=== PATIENT | female | born 1960 | race Caucasian/White ===

== ENCOUNTER 2017-06-17 14:13 | Inpatient (IN) | payer OTHER ==
[2017-06-17 14:25] VITALS: BMI 36.4
[2017-06-17] MEDS ORDERED: SODIUM CHLORIDE 1,000 ML IV STA (15:00)
[2017-06-17] MEDS ORDERED: ACETAMINOPHEN 1000 MG/100 ML VIAL (NON FORMULARY) IVPB ONE (15:01)
[2017-06-17] MEDS ORDERED: morphine CARPU-JECT 2 MG/1 ML DISP.SYRIN IVPUSH ONE (15:01)
--- NOTE | 2017-06-17 15:29 | PDOC ---
History of Present Illness - General Chief Complaint: SIRS, Suspected/Possible Stated Complaint: WEAKNESS Time Seen by Provider: 06/17/17 14:33 History Source: Patient Exam Limitations: No Limitations - History of Present Illness Initial Comments: 06/17/17 14:35 56-year-old female with recent diagnosis of breast and spine cancer in January now currently receiving chemotherapy and radiation therapy presents today with weakness, fever, poor appetite for the past 2 days. Patient states was treated by her oncologist who prescribed her Keflex since initially she states under the breasts were red and excoriated. Patient denies cough, shortness of breath, chest pain, headache, sore throat, change in bowel pattern, or change in urine pattern. Timing/Duration: other (2 days) Associated Symptoms: reports: fever/chills, loss of appetite, rash, weakness. denies: chest pain, cough, headaches, nausea/vomiting, shortness of breath Past History - Travel Traveled outside of the country in the last 30 days: No - Past Medical History Allergies/Adverse Reactions: Allergies Allergy/AdvReac Type Severity Reaction Status Date / Time No Known Allergies Allergy Verified 06/17/17 14:21 Home Medications: Ambulatory Orders Acetaminophen W/ Codeine #3 [Tylenol # 3 -] 1 tab PO TID 06/17/17 Cephalexin [Keflex] 500 mg PO QID 06/17/17 FENTANYL 12mcg PATCH [DURAGESIC 12mcg PATCH -] 1 each TD Q72H 06/17/17 Letrozole 2.5 mg PO DAILY 06/17/17 Oxycodone HCl/Acetaminophen [Oxycodone-Acetaminophen 5-325] 2 tab PO Q6H Anemia: No Asthma: No Cancer: Yes (RIGHT BREAST 01/2015-HAD 8 WEEKS CHEMO, COMPLETED 05/07/15) Cardiac Disorders: No CVA: No COPD: No CHF: No Dementia: No Diabetes: No GI Disorders: No Disorders: No HTN: No Hypercholesterolemia: No Liver Disease: No Seizures: No Thyroid Disease: No - Surgical History Abdominal Surgery: No Appendectomy: No Cardiac Surgery: No Cholecystectomy: No Lung Surgery: No Neurologic Surgery: No Orthopedic Surgery: No - Psycho/Social/Smoking Cessation Hx Anxiety: No Suicidal Ideation: No Smoking History: Never smoked Hx Alcohol Use: Yes (SOCIAL) Drug/Substance Use Hx: No Substance Use Type: None Hx Substance Use Treatment: No Patient Lives Alone: No Review of Systems - Review of Systems Able to Perform ROS?: Yes Constitutional: Yes: Symptoms Reported, Chills, Fever, Loss of Appetite, Weakness HEENTM: No: Symptoms Reported Respiratory: No: Symptoms reported Cardiac (ROS): No: Symptoms Reported ABD/GI: Yes: Poor Appetite, Poor Fluid Intake : No: Symptoms Reported Musculoskeletal: No: Symptoms Reported Integumentary: Yes: Other (fungal rash under breat. Radiation burn to back) Neurological: Yes: Weakness *Physical Exam - Vital Signs Last Vital Signs Temp Pulse Resp BP Pulse Ox 100.4 F H 132 H 19 121/81 98 06/17/17 14:21 06/17/17 14:21 06/17/17 14:21 06/17/17 14:21 06/17/17 14:21 - Physical Exam General Appearance: Yes: Nourished, Appropriately Dressed. No: Apparent Distress HEENT: positive: EOMI, MICA, TMs Normal, Pharynx Normal (DRY). negative: Pale Conjunctivae Neck: positive: Supple Respiratory/Chest: positive: Lungs Clear, Normal Breath Sounds. negative: Respiratory Distress, Accessory Muscle Use Cardiovascular: positive: Regular Rhythm, Tachycardia. negative: Murmur Gastrointestinal/Abdominal: positive: Soft. negative: Tenderness Extremity: positive: Normal Capillary Refill. negative: Pedal Edema Integumentary: positive: Other (Noted radiation burn measuring 4 x 3 cm to the mid thoracic spine without signs of infection. ) Neurologic: positive: Normal Mood/Affect, Motor Strength 5/5 (AMBULATORY) ED Treatment Course - LABORATORY CBC & Chemistry Diagram: 06/18/17 06:30 06/17/17 15:30 - RADIOLOGY Radiology Studies Ordered: Category Date Time Status CHEST X-RAY PORTABLE* [RAD] Stat Radiology 06/17/17 15:00 Ordered Medical Decision Making - Medical Decision Making 06/17/17 15:36 Patient here for evaluation of fever and weakness for the past few days. Patient currently on Keflex day 2 of 7 and states took Tylenol at 5 AM for fever and weakness. Patient on exam had no acute findings except for the radiation burn to her mid thoracic spine and follow-up rash underneath her breasts. Patient was ordered for septic workup including morphine 2 mg IV push for thoracic pain. Patient ordered for IV Tylenol and IV fluids. 06/17/17 15:53 Laboratory Tests 06/04/15 06/04/15 06/05/15 08:45 12:30 07:30 Hgb 9.3 L 9.5 L 9.6 L VBG pH POC VBG pCO2 06/17/17 06/17/17 15:30 15:40 Hgb 9.7 L VBG pH 7.42 POC VBG pCO2 41.2 X-ray shows no acute pathology. 06/17/17 17:08 Laboratory Tests 06/17/17 06/17/17 15:30 15:30 Sodium 138 Potassium 3.0 L Chloride 101 Carbon Dioxide 24 Anion Gap 13 BUN 10 Random Glucose 112 H Lactic Acid 1.7 Calcium 8.2 L AST 27 ALT 64 Troponin I < 0.02 Albumin 2.8 L Pt ordered for vanco and zosyn IV. For the hypokalemia, pt ordered for k-dur. Awaiting callback from Dr. Barrera to discuss admission. 06/17/17 18:13 06/17/17 18:14 Selected Entries 06/17/17 16:45 Temperature 98.6 F Pulse Rate [ 112 H Apical] Case discussed with Dr. barnard and is recommending consultation to her oncologist Dr. cruz. Will order Lotrimin for breast Kassandra Laboratory Tests 06/17/17 17:25 Urine Urobilinogen Negative Urine WBC 6 *DC/Admit/Observation/Transfer Diagnosis at time of Disposition: Hypokalemia, Candidiasis of breast Sepsis Qualifiers: Sepsis type: sepsis due to unspecified organism Qualified Code(s): A41.9 - Sepsis, unspecified organism - Discharge Dispostion Admit: Yes - Referrals
[2017-06-17] MEDS ORDERED: morphine CARPU-JECT 2 MG/1 ML DISP.SYRIN ONE (15:34)
[2017-06-17] MEDS ORDERED: ACETAMINOPHEN INJECTION 100 ML IVPB ONE (15:34)
[2017-06-17 15:41] LABS: BASOPHIL 0.4 % (0-2.0)
[2017-06-17 15:44] LABS: VENOUS PH 7.42 (7.32-7.42)
[2017-06-17 15:45] LABS: VENOUS BLOOD GAS HCO3 25.9 meq/L (19-25)
[2017-06-17 15:45] LABS: MCH 32.3 pg (25.7-33.7); MCHC 34.4 g/dl (32.0-36.0); MEAN PLT VOLUME 8.9 fl (7.5-11.1); NEUTROPHILS 77.4 % (42.8-82.8); PLATELET COUNT 226 K/MM3 (134-434); RDW 19.8 % (11.6-15.6)
[2017-06-17 16:32] LABS: INR 1.43 (0.82-1.09); PROTHROMBIN TIME (PATIENT) 15.9 SEC (9.98-11.88)
[2017-06-17 16:43] LABS: ALBUMIN 2.8 g/dl (3.4-5.0); ANION GAP 13 (8-16); CALCIUM 8.2 mg/dL (8.5-10.1); CO2 24 mmol/L (21-32); GLUCOSE,RANDOM 112 mg/dL (74-106)
[2017-06-17 16:47] LABS: PLATELET ESTIMATE ADEQUATE (NORMAL)
[2017-06-17 16:51] LABS: ALK PHOS 88 U/L (45-117); BILIRUBIN,TOTAL 0.8 mg/dL (0.2-1.0); CPK 38 IU/L (26-192); CREATININE 0.6 mg/dL (0.55-1.02); SGOT/AST 27 U/L (15-37); SGPT/ALT 64 U/L (12-78); TOT PROT 6.4 g/dl (6.4-8.2); TROPONIN I < 0.02 ng/ml (0.00-0.05)
[2017-06-17] MEDS ORDERED: VANCOMYCIN 1,000 MG in DEXTROSE 5%-WATER - 250 ML IVPB ONE (17:07)
[2017-06-17] MEDS ORDERED: POTASSIUM CHLORIDE TABS 20 MEQ TABLET.ER (FP) PO ONE ×2 (17:07→17:23)
[2017-06-17] MEDS ORDERED: PIPERACILLIN/TAZOB 3.375 GM 3.375 GM in DEXTROSE 5%-WATER - 50 ML IVPB SCH (17:15)
[2017-06-17] MEDS ORDERED: VANCOMYCIN 1 GRAM (PRE-DOCKED) 250 ML IVPB ONE (17:23)
[2017-06-17] MEDS ORDERED: PIPERACILLIN/TAZOB 3.375 GM 50 ML IVPB ONE (17:23)
[2017-06-17 17:45] LABS: URINE APPEARANCE SLCLOUDY; URINE BILIRUBIN NEGATIVE (NEGATIVE); URINE BLOOD NEGATIVE (NEGATIVE); URINE COLOR YELLOW; URINE GLUCOSE (UA) NEGATIVE (NEGATIVE); URINE KETONE NEGATIVE (NEGATIVE); URINE NITRITE NEGATIVE (NEGATIVE); URINE PROTEIN NEGATIVE (NEGATIVE); URINE UROBILINOGEN NEGATIVE mg/dL (0.2-1.0)
[2017-06-17 17:50] LABS: URINE LEUK ESTERASE 3+ (NEGATIVE)
[2017-06-17 18:04] LABS: URINE BACTERIA RARE /hpf (NONE SEEN); URINE HYALINE CAST 1 /lpf; URINE MUCUS MODERATE; URINE RBC 5 /hpf (0-3); URINE WBC 6 /hpf (3-5)
[2017-06-17] MEDS ORDERED: FENTANYL PATCH WASTE MC PRN (19:30)
[2017-06-17] MEDS ORDERED: fentaNYL 12mcg/hr PATCH.TD72 TD SCH (19:30)
[2017-06-17] MEDS ORDERED: oxyCODONE HCL 5 MG TABLET PO PRN (19:30)
[2017-06-17] MEDS ORDERED: ACETAMINOPHEN 325 MG TABLET (FP) PO PRN (19:30)
[2017-06-17] MEDS ORDERED: hydrOXYzine HCL 25 MG TABLET (FP) PO PRN (19:30)
[2017-06-17] MEDS ORDERED: CLOTRIMAZOLE 1% CREAM 15 GM TUBE TP SCH (22:00)
[2017-06-17] MEDS: HEPARIN NA (PORCINE) 5,000 UNITS/ML 1ML VIAL SQ SCH (22:07)
[2017-06-17] MEDS: CLOTRIMAZOLE 1% CREAM 15 GM TUBE TP SCH ×2 (22:14)
[2017-06-18] MEDS ORDERED: PIPERACILLIN/TAZOBACTAM 3.375 GM VIAL IVPB ONE (00:20)
[2017-06-18] MEDS ORDERED: DEXTROSE 5%-WATER - 50 ML IVPB ONE (00:21)
[2017-06-18] MEDS ORDERED: PIPERACILLIN/TAZOB 3.375 GM 3.375 GM in DEXTROSE 5%-WATER - 50 ML IVPB ONE (02:00)
[2017-06-18 07:17] LABS: MCH 31.9 pg (25.7-33.7); MCHC 33.6 g/dl (32.0-36.0); MEAN CELL VOLUME 94.9 fl (80-96); MEAN PLT VOLUME 8.1 fl (7.5-11.1); PLATELET COUNT 190 K/MM3 (134-434); RDW 20.1 % (11.6-15.6)
[2017-06-18 07:24] LABS: WHITE BLOOD COUNT 1.8 K/mm3 (4.0-10.0)
[2017-06-18 07:52] LABS: ALBUMIN 2.2 g/dl (3.4-5.0); ALK PHOS 71 U/L (45-117); ANION GAP 7 (8-16); BILIRUBIN,TOTAL 0.4 mg/dL (0.2-1.0); CALCIUM 7.8 mg/dL (8.5-10.1); CO2 27 mmol/L (21-32); CREATININE 0.5 mg/dL (0.55-1.02); GLUCOSE,RANDOM 115 mg/dL (74-106); SGOT/AST 27 U/L (15-37); SGPT/ALT 61 U/L (12-78); TOT PROT 5.4 g/dl (6.4-8.2)
[2017-06-18 09:01] LABS: PLATELET ESTIMATE ADEQUATE (NORMAL); TOTAL CELLS COUNTED 100
[2017-06-18 09:02] LABS: METAMYELOCYTE 2 % (0-2); MYELOCYTE 1 % (0-2); REACTIVE LYMPHOCYTES 2 % (0-80)
[2017-06-18] MEDS ORDERED: PT OWN MED DRAWER 7, Y5N ONE (09:29)
[2017-06-18] MEDS: CLOTRIMAZOLE 1% CREAM 15 GM TUBE TP SCH (09:34)
--- NOTE | 2017-06-18 09:48 | PN ---
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, completed RT to spine one month ago developed fevers for last one week, as high as 101 at home saw the radiation oncologist for f/u on Monday- advised admission for fever given keflex for open skin wound on back also antifungal cream for rash under breast not working lives with mom no sick contacts lives in an apt no travel no pets no mosquito/tick bites on oral chemotherapy-currently off this week ?name no nausea or vomiting, no diarrhea or dysuria followed by Dr Rosenberg at [facility] notable for fever to 100.8 fungal rash under left breast radiation skin changes on back with open skin- no purulence, no erythema labs notable for neutropenia a/p fever/leukopenia open skin wound fungal rash under left breast metastatic breast cancer vanco/zosyn/diflucan f/u cultures Problem List - Problems (1) Fever Code(s): R50.9 - FEVER, UNSPECIFIED (2) Leukopenia due to antineoplastic chemotherapy Code(s): D70.1 - AGRANULOCYTOSIS SECONDARY TO CANCER CHEMOTHERAPY T45.1X5A - ADVERSE EFFECT OF ANTINEOPLASTIC AND IMMUNOSUP DRUGS, INIT (3) Candidiasis of breast Code(s): B37.89 - OTHER SITES OF CANDIDIASIS (4) Metastatic breast cancer Code(s): C50.919 - MALIGNANT NEOPLASM OF UNSP SITE OF UNSPECIFIED FEMALE BREAST
[2017-06-18] MEDS ORDERED: PIPERACILLIN/TAZOB 4.5 GM/100 ML PRE-DOCKED IVPB SCH (10:00)
[2017-06-18] MEDS ORDERED: PIPERACILLIN/TAZOB 3.375 GM 3.375 GM in DEXTROSE 5%-WATER - 50 ML IVPB SCH (10:00)
[2017-06-18] MEDS ORDERED: FLUCONAZOLE 100 MG TABLET (UD) PO SCH (10:45)
--- NOTE | 2017-06-18 10:56 | HP ---
Admitting History and Physical - Primary Care Physician PCP: Lynette Barrera - Admission Chief Complaint: RASH/CELLULITIS WITH BREAST METASTATIC CA History of Present Illness: 56-year-old female with recent diagnosis of breast and spine cancer in January now currently receiving chemotherapy and radiation therapy presents today with weakness, fever, poor appetite for the past 2 days. Patient states was treated by her oncologist who prescribed her Keflex and Silvadene since initially she states under the breasts were red and excoriated. Patient denies cough, shortness of breath, chest pain, headache, sore throat, change in bowel pattern , or change in urine pattern. Timing/Duration: other (2 days) Associated Symptoms: reports: fever/chills, loss of appetite, rash, weakness. denies: chest pain, cough, headaches, nausea/vomiting, shortness of breath History Source: Patient, Medical Record Limitations to Obtaining History: Poor Historian - Past Medical History Heme/Onc: Yes: Other (breast cancer with mets to bone) Musculoskeletal: Yes: Other - Smoking History Smoking history: Never smoked - Alcohol/Substance Use Hx Alcohol Use: Yes (SOCIAL) Home Medications - Allergies Allergies/Adverse Reactions: Allergies Allergy/AdvReac Type Severity Reaction Status Date / Time No Known Allergies Allergy Verified 06/17/17 14:21 - Home Medications Home Medications: Ambulatory Orders Acetaminophen W/ Codeine #3 [Tylenol # 3 -] 1 tab PO TID 06/17/17 Cephalexin [Keflex] 500 mg PO QID 06/17/17 FENTANYL 12mcg PATCH [DURAGESIC 12mcg PATCH -] 1 each TD Q72H 06/17/17 Letrozole 2.5 mg PO DAILY 06/17/17 Oxycodone HCl/Acetaminophen [Oxycodone-Acetaminophen 5-325] 2 tab PO Q6H Family Disease History - Family Disease History Family Disease History: CA: Mother (endometrial ca 76) Review of Systems - Review of Systems Constitutional: reports: Loss of Appetite, Weakness Eyes: reports: No Symptoms HENT: reports: No Symptoms Neck: reports: No Symptoms Cardiovascular: reports: No Symptoms Respiratory: reports: No Symptoms Gastrointestinal: reports: No Symptoms Genitourinary: reports: No Symptoms Musculoskeletal: reports: No Symptoms Integumentary: reports: Eczema, Erythema, Pruritis, Rash Neurological: reports: No Symptoms Endocrine: reports: No Symptoms Hematology/Lymphatic: reports: Other Psychiatric: reports: No Symptoms Physical Examination Vital Signs: Vital Signs Temperature 98.2 F 06/18/17 06:00 Pulse Rate 106 H 06/18/17 06:00 Respiratory Rate 18 06/18/17 06:00 Blood Pressure 142/81 06/18/17 06:00 O2 Sat by Pulse Oximetry (%) 95 06/17/17 20:50 Constitutional: Yes: Mild Distress Eyes: Yes: WNL HENT: Yes: WNL Neck: Yes: WNL Cardiovascular: Yes: WNL Respiratory: Yes: WNL Gastrointestinal: Yes: WNL Renal/: Yes: WNL Musculoskeletal: Yes: WNL Extremities: Yes: WNL Edema: No Peripheral Pulses WNL: Yes Integumentary: Yes: Rash, Venous Stasis Changes, Other Wound/Incision: Yes: Dressing Dry and Intact Neurological: Yes: Pre-Existing Deficit, Other ...Motor Strength: LLE, RLE Psychiatric: Yes: WNL Labs: CBC, BMP 06/18/17 06:30 06/18/17 06:30 Imaging - Results Chest X-ray: Report Reviewed Assessment/Plan BREAST CANCER WITH METS TO SPINE CORD COMPRESSION ON CHEMOTHERAPY WITH DR JESUS ESPINOSA/LETRIZOL ALSO RECEIVING RADIATION THERAPY WITH DR HANNA. PATIENT ON SILVADENE CREAM FOR RADIATION SKIN YBARRA. ID CONSULT APPRECIATED , ANTI FUNGAL THERAPY STARTED WILL NEED TO STOP OXYCODONE WITH ANTIFUNGALS PER ID. MAY CONTINUE DURAGESIC FENTANYL PATCH FOR PAIN I D/W DR HANY LEE WHO WILL BE HERE TO SEE PATIENT ISOLATION ROOM
[2017-06-18] MEDS: LETROZOLE 2.5 MG TABLET (FP) PO SCH (10:58)
[2017-06-18] MEDS: HEPARIN NA (PORCINE) 5,000 UNITS/ML 1ML VIAL SQ SCH ×2 (10:58→21:35)
[2017-06-18] MEDS: PIPERACILLIN/TAZOB 4.5 GM 4.5 GM in DEXTROSE 5%-WATER 100 ML IVPB SCH ×2 (10:59→17:48)
--- NOTE | 2017-06-18 11:03 | CONSULT ---
Consult Consult Specialty:: Hematology/Oncology Referred by:: - History of Present Illness Chief Complaint: metastatic breast cancer, fever History of Present Illness: is a 56 y/o female with Hx of metastatic breast cancer, who follows with and is on chemotherapy and radation treatment. She completed RT a month ago. She presented with weakness and a fever of 100.8. She has an open skin wound on her back for which she was being treated with Keflex. She also had erythema under her left breast which she showed to her oncologist and his nurse last week and they suspected it was a fungal infection. Patient was admitted and started on broad spectrum antibiotics and antifungals. She overall feels well today with no major complaints. - History Source History Provided By: Patient Limitations to Obtaining History: No Limitations - Past Medical History Musculoskeletal: Yes: Other - Alcohol/Substance Use Hx Alcohol Use: Yes (SOCIAL) - Smoking History Smoking history: Never smoked Home Medications - Allergies Allergies/Adverse Reactions: Allergies Allergy/AdvReac Type Severity Reaction Status Date / Time No Known Allergies Allergy Verified 06/17/17 14:21 - Home Medications Home Medications: Ambulatory Orders Acetaminophen W/ Codeine #3 [Tylenol # 3 -] 1 tab PO TID 06/17/17 Cephalexin [Keflex] 500 mg PO QID 06/17/17 FENTANYL 12mcg PATCH [DURAGESIC 12mcg PATCH -] 1 each TD Q72H 06/17/17 Letrozole 2.5 mg PO DAILY 06/17/17 Oxycodone HCl/Acetaminophen [Oxycodone-Acetaminophen 5-325] 2 tab PO Q6H Family Disease History - Family Disease History Family Disease History: CA: Mother (endometrial ca 76) Review of Systems - Review of Systems Constitutional: reports: No Symptoms Eyes: reports: No Symptoms HENT: reports: No Symptoms Neck: reports: No Symptoms Cardiovascular: reports: No Symptoms Respiratory: reports: No Symptoms Gastrointestinal: reports: No Symptoms Genitourinary: reports: No Symptoms Breasts: reports: No Symptoms Reported, Skin Changes, Other (erythema uner her left breast) Musculoskeletal: reports: No Symptoms Integumentary: reports: Other (wound in the back after radiation) Neurological: reports: No Symptoms Endocrine: reports: No Symptoms Hematology/Lymphatic: reports: No Symptoms Psychiatric: reports: No Symptoms Physical Exam Vital Signs: Vital Signs Temperature 98.2 F 06/18/17 06:00 Pulse Rate 106 H 06/18/17 06:00 Respiratory Rate 18 06/18/17 06:00 Blood Pressure 142/81 06/18/17 06:00 O2 Sat by Pulse Oximetry (%) 95 06/17/17 20:50 Constitutional: Yes: Well Nourished Eyes: Yes: WNL, Conjunctiva Clear, EOM Intact HENT: Yes: WNL, Atraumatic, Normocephalic Neck: Yes: WNL Cardiovascular: Yes: WNL, Regular Rate and Rhythm Respiratory: Yes: WNL, Regular Gastrointestinal: Yes: WNL, Normal Bowel Sounds Breast(s): Yes: Skin Changes, Other (large area of erythema with macerated skin and raised borders under her left breast largely suggestive of a fungal infection) Musculoskeletal: Yes: WNL Extremities: Yes: WNL, Other (area of denuded skin in mid back , appears clean and non-infected, radiation induced changes) Neurological: Yes: WNL Labs: CBC, BMP 06/18/17 06:30 06/18/17 06:30 Assessment/Plan 56 y/o female with metastatic breast cancer on oral chemotherapy now admitted with a low grade fever, area of erythema under left breast highly suggestive of a fungal infection and area of denuded skin in the back which is clean and radiation induced skin changes -on broad spectrum Abx and diflucan per ID, on topical antifungals as well, awaiting BCX results, afebrile now -silver sulfadiazine and wound care to radiation induced skin changes in the back -will touch base with her oncologist tomorrow to get details on her current chemotherapy. She says she is currently on her week off from treatment now and while she is undergoing infectious work-up. ok to hold treatment for 48 hours -will continue to follow while inpatient
[2017-06-18] MEDS ORDERED: FLUCONAZOLE 200 MG/D5W 100 ML IVPB ONE (11:15)
[2017-06-18] MEDS ORDERED: NYSTATIN/TRIAMCINOLONE TOPICAL CREAM 15 GM TUBE TP SCH (11:15)
[2017-06-18] MEDS ORDERED: PIPERACILLIN/TAZOBACTAM 4.5 GM VIAL IVPB ONE ×2 (11:43→17:25)
[2017-06-18] MEDS ORDERED: DEXTROSE 5%-WATER 100 ML IVPB ONE ×2 (11:44→17:25)
[2017-06-18] MEDS: VANCOMYCIN 1,250 MG in DEXTROSE 5%-WATER - 250 ML IVPB SCH ×2 (14:30→21:35)
[2017-06-18] MEDS: SILVER SULFADIAZINE 1% TOP CREAM 50 GM JAR TP SCH (14:32)
[2017-06-18] MEDS: NYSTATIN/TRIAMCINOLONE TOPICAL CREAM 15 GM TUBE TP SCH ×2 (14:33→21:42)
--- NOTE | 2017-06-18 18:08 | CONS ---
DATE OF CONSULTATION: DATE OF DICTATION: 06/18/2017 REQUESTED BY: Lynette Barrera MD This is a 56-year-old woman who has a diagnosis of recurrent breast cancer, originally diagnosed in 2013. At that time she had 8 weeks of chemotherapy and lumpectomy and followup radiation treatment. She developed back pain in the spring of his year, was found to have metastases to her spine. She completed a course of radiation therapy to her back 1 month ago. She is followed by Dr. Palomino, Radiation Oncology, who she saw in followup 1 month after she completed her treatment on Monday. At that time she told him she was having fevers at home, and he recommended admission. She waited until Monday night and came to the emergency room and she had recurrent fever to 101 at home. She was started on Keflex and a topical antifungal cream on Monday. She is followed by Dr. Rosenberg at [place] for her breast cancer. She takes an oral agent, 3 weeks on, 1 week off, currently off. Doesn't know the name. FOllowed by Dr Rosenberg at [facility]. She is followed as well by Dr. Palomino and Dr. Barrera. She reports that she has been feeling weak. She has had fevers with a poor appetite. She has had no chest pain, cough, headaches, nausea, vomiting, diarrhea, dysuria, or mucositis. She has no known drug allergies. MEDICATION: She was started on Keflex on Monday. She takes letrozole, which is Femara, daily. She has been on a fentanyl patch for the last 2 months, with good control of her pain, and she also takes an oral chemotherapy agent, is currently off. Her past medical history, besides the breast cancer, is otherwise unremarkable. Surgical history, besides the lumpectomy, is unremarkable. She does not have a port. Family history is unremarkable. SOCIAL HISTORY: She lives with her mother. She works at [employer], is currently not working. There is no history of any cigarette or substance use. REVIEW OF SYSTEMS: As per HPI, she feels hot and has sweats. She denies any chills or rigors. PHYSICAL EXAMINATION: Vital Signs: Her T-max is 100.8, current temperature is 98.2. Pulse of 106. Blood pressure 142/81. Respiratory rate 18. She is saturating 95% on room air. HEENT: Normocephalic. Her eyes are anicteric. She has no mucositis. Neck: Supple. Lungs: Clear to auscultation. Heart: Regular rate and rhythm. Abdomen: Soft, nontender. Extremities: Without edema. Skin: She has a fungal rash under her left breast. As well, she has a 5 x 7 cm area on her midback, site of her prior radiation, with open skin. There is no drainage or purulence or erythema. Labs are notable for a white count of 1.8, hemoglobin 8.3, platelets 190. BUN 6 , creatinine 0.5. LFTs are normal. Urinalysis is notable for 6 white cells. Cultures are pending. Chest x-ray is negative. In summary, this is a 56-year-old woman metastatic breast cancer on oral chemotherapy s/p Radiatio therapy to her spine with fevers, a fungal rash under her left breast, and radiation skin changes to her back. As well she is leukopenic from her chemotherapy Would treat her at this time with vancomycin and Zosyn for neutropenic fever, and Diflucan for her rash. Would follow up cultures. Case was discussed with Dr. Barrera. Need to follow cbc closely due to leukopenia GUILLERMO VINSON M.D. SHAILA/[id number] MTDD
[2017-06-19] MEDS ORDERED: DEXTROSE 5%-WATER 100 ML IVPB ONE ×4 (00:05→20:05)
[2017-06-19] MEDS ORDERED: PIPERACILLIN/TAZOBACTAM 4.5 GM VIAL IVPB ONE ×4 (00:05→20:05)
[2017-06-19] MEDS: PIPERACILLIN/TAZOB 4.5 GM 4.5 GM in DEXTROSE 5%-WATER 100 ML IVPB SCH ×3 (02:15→17:33)
[2017-06-19 07:19] LABS: MCH 31.8 pg (25.7-33.7); MCHC 33.6 g/dl (32.0-36.0); MEAN CELL VOLUME 94.6 fl (80-96); MEAN PLT VOLUME 8.4 fl (7.5-11.1); PLATELET COUNT 258 K/MM3 (134-434); RDW 20.2 % (11.6-15.6); WHITE BLOOD COUNT 2.6 K/mm3 (4.0-10.0)
[2017-06-19 08:03] LABS: ANION GAP 7 (8-16); CALCIUM 8.3 mg/dL (8.5-10.1); CO2 25 mmol/L (21-32); CREATININE 0.7 mg/dL (0.55-1.02); GLUCOSE,RANDOM 117 mg/dL (74-106)
[2017-06-19] MEDS ORDERED: PT OWN MED DRAWER 7, Y5N ONE ×2 (09:01→20:04)
--- NOTE | 2017-06-19 09:33 | PN ---
Progress Note (short form) - Note Progress Note: fevers improved feels better Vital Signs Period Temp Pulse Resp BP Sys/Deras Pulse Ox Last 24 Hr 98.9 F-100.2 F 105-121 18-20 126-144/69-94 96 cor-rrr lungs clear back wound unchanged abd soft,nt ext no edema fungal rash under breast unchanged CBC, BMP 06/19/17 06:00 06/19/17 06:00 Microbiology 06/17/17 15:30 Blood - Peripheral Venous Blood Culture - Preliminary NO GROWTH OBTAINED AFTER 24 HOURS, INCUBATION TO CONTINUE FOR 4 DAYS. 06/17/17 15:44 Blood - Peripheral Venous Blood Culture - Preliminary NO GROWTH OBTAINED AFTER 24 HOURS, INCUBATION TO CONTINUE FOR 4 DAYS. a/p fever/leukopenia open skin wound fungal rash under left breast metastatic breast cancer on chemotherapy s/p radiation therapy WBC recovering vanco/zosyn lotrimin vancomycin trough f/u cultures Problem List - Problems (1) Fever Code(s): R50.9 - FEVER, UNSPECIFIED (2) Leukopenia due to antineoplastic chemotherapy Code(s): D70.1 - AGRANULOCYTOSIS SECONDARY TO CANCER CHEMOTHERAPY T45.1X5A - ADVERSE EFFECT OF ANTINEOPLASTIC AND IMMUNOSUP DRUGS, INIT (3) Candidiasis of breast Code(s): B37.89 - OTHER SITES OF CANDIDIASIS (4) Metastatic breast cancer Code(s): C50.919 - MALIGNANT NEOPLASM OF UNSP SITE OF UNSPECIFIED FEMALE BREAST
[2017-06-19] MEDS: NYSTATIN/TRIAMCINOLONE TOPICAL CREAM 15 GM TUBE TP SCH (09:37)
[2017-06-19] MEDS: LETROZOLE 2.5 MG TABLET (FP) PO SCH (09:37)
[2017-06-19] MEDS: HEPARIN NA (PORCINE) 5,000 UNITS/ML 1ML VIAL SQ SCH ×2 (09:37→21:56)
[2017-06-19] MEDS: SILVER SULFADIAZINE 1% TOP CREAM 50 GM JAR TP SCH (09:38)
[2017-06-19] MEDS: VANCOMYCIN 1,250 MG in DEXTROSE 5%-WATER - 250 ML IVPB SCH ×2 (10:04→21:55)
--- NOTE | 2017-06-19 16:07 | PN ---
Progress Note, Physician Chief Complaint: FEELING BETTER NO FEVERS OVERNIGHT RASH IMPROVING - Current Medication List Current Medications: Active Medications Acetaminophen (Tylenol -) 650 mg PO Q6H PRN PRN Reason: FEVER OR PAIN Last Admin: 06/18/17 02:54 Dose: 650 mg Fentanyl (Duragesic 12mcg Patch -) 1 patch TD Q72H [facility] Stop: 06/24/17 19:31 Last Admin: 06/17/17 22:04 Dose: 1 patch Heparin Sodium (Porcine) (Heparin -) 5,000 unit SQ BID [facility] Last Admin: 06/19/17 09:37 Dose: 5,000 unit Vancomycin HCl 1,250 mg/ (Dextrose) 250 mls @ 166.667 mls/hr IVPB BID DILLON PRN Reason: Protocol Last Admin: 06/19/17 10:04 Dose: 166.667 mls/hr Piperacillin Sod/Tazobactam (Sod 4.5 gm/ Dextrose) 100 mls @ 200 mls/hr IVPB Q8H-IV [facility] Last Admin: 06/19/17 09:37 Dose: 200 mls/hr Letrozole (Femara -) 2.5 mg PO DAILY [facility] Last Admin: 06/19/17 09:37 Dose: 2.5 mg Miscellaneous (Duragesic Patch Waste) 1 each MC PRN PRN PRN Reason: PAIN Nystatin/Triamcinolone Acetonide (Mycolog Ii Cream -) 1 applic TP BID [facility] Last Admin: 06/19/17 09:37 Dose: 1 applic Silver Sulfadiazine (Silvadene -) 1 applic TP DAILY [facility] Last Admin: 06/19/17 09:38 Dose: 1 applic - Objective Vital Signs: Vital Signs Temperature 99.5 F 06/19/17 15:31 Pulse Rate 111 H 06/19/17 15:31 Respiratory Rate 20 06/19/17 15:31 Blood Pressure 119/72 06/19/17 15:31 O2 Sat by Pulse Oximetry (%) 96 06/18/17 21:00 Constitutional: Yes: Mild Distress Eyes: Yes: WNL HENT: Yes: WNL Neck: Yes: WNL Cardiovascular: Yes: WNL Respiratory: Yes: WNL Gastrointestinal: Yes: WNL Genitourinary: Yes: WNL Musculoskeletal: Yes: WNL Extremities: Yes: WNL Edema: No Peripheral Pulses WNL: Yes Integumentary: Yes: Rash, Other Wound/Incision: Yes: Open to air Neurological: Yes: WNL ...Motor Strength: WNL Psychiatric: Yes: WNL Labs: CBC, BMP 06/19/17 06:00 06/19/17 06:00 INR, PTT INR 1.43 (0.82-1.09) H 06/17/17 15:30 Problem List - Problems (1) Candidiasis of breast Code(s): B37.89 - OTHER SITES OF CANDIDIASIS (2) Fever Code(s): R50.9 - FEVER, UNSPECIFIED (3) Hypokalemia Code(s): E87.6 - HYPOKALEMIA (4) Leukopenia due to antineoplastic chemotherapy Code(s): D70.1 - AGRANULOCYTOSIS SECONDARY TO CANCER CHEMOTHERAPY T45.1X5A - ADVERSE EFFECT OF ANTINEOPLASTIC AND IMMUNOSUP DRUGS, INIT (5) Metastatic breast cancer Code(s): C50.919 - MALIGNANT NEOPLASM OF UNSP SITE OF UNSPECIFIED FEMALE BREAST Assessment/Plan IV ABX AWAIT CX MYCOLOG II TO AREA SILVADENE TO BACK FOR RADIATION BURN OOB TO CHAIR IF THE PATIENT IS FEVER FREE DC PLANNING
--- NOTE | 2017-06-19 16:38 | EKG ---
Test Reason : Blood Pressure : / mmHG Vent. Rate : 117 BPM Atrial Rate : 117 BPM P-R Int : 136 ms QRS Dur : 072 ms QT Int : 316 ms P-R-T Axes : 028 -06 016 degrees QTc Int : 440 ms SINUS TACHYCARDIA INFERIOR INFARCT , AGE UNDETERMINED CANNOT RULE OUT ANTERIOR INFARCT , AGE UNDETERMINED ABNORMAL ECG NO PREVIOUS ECGS AVAILABLE Confirmed by ERIC TRINIDAD MD ([id number]) on 06/19/2017 4:38:01 PM Referred By: Confirmed By:ERIC TRINIDAD MD
--- NOTE | 2017-06-19 21:42 | CONSULT ---
Consult Consult Specialty:: Medical Oncology Referred by:: Lynette Barrera MD Reason for Consultation:: Low WBC , fever, skin infection - History of Present Illness Chief Complaint: worsening rash under breasts History of Present Illness: 56 y/o F w hx metastatic breast cancer w spine metastasis s/p RT , currently finished 3rd cycle of Kisqali 4 days ago ( 3 pills per day X 21 days , 7 days rest ) along w continuous Femara 2.5 mg PO qd , developed skin rash on her back due to RT but also began to get painful rash underneath her breasts L>R , assoc w fatigue, fever , ?chills , started on Keflex. Pt found to have neutropenia on admission , fungal-appearing rash below breasts, started on Zosyn and Vanco , Diflucan ; Discomfort improving as well as WBC rising without growth factor support ; had only one low grade temp 100 ; cultures neg ; low K+ -improved . CXR neg. 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: Alzheimer's, CVA, Dementia, Migraine, Multiple Sclerosis, Peripheral Neuropathy, Parkinson's, Seizure, Syncope, TIA, Vertigo, Other Cardio/Vascular: No: AFIB, Aneurysm, Aortic Insufficiency, Aortic Stenosis, CAD , CHF, Deep Vein Thrombosis, HTN, Hyperlipdemia, CA, Mitral Insufficiency, Mitral Stenosis, Murmur, Pulmonary Hypertension, Other Pulmonary: No: Asthma, Bronchitis, Cancer, COPD, O2 Dependent, Pneumonia, Previously Intubated, Pulmonary Embolus, Pulmonary Fibrosis, Sleep Apnea, Other Gastrointestinal: No: Ascites, Cancer, Constipation, Crohn's Disease, Diverticulitis, Diverticulosis, Esophageal Varices, Gastritis, GERD, GI Bleed, Hemorrhoids, Hiatal Hernia, Inflamatory Bowel Disease, Irritable Bowel Disease, Pancreatitis, Peptic Ulcer Disease, Ulcerative Colitis, Other Hepatobiliary: No: Cirrhosis, Cholelithiasis, Cholecystitis, Choledocholithiasis , Hepatitis A, Hepatitis B, Hepatitis C, Other Infectious Disease: No: AIDS, C-Diff, Herpes Zoster, HIV, MRSA, STD's, Tuberculosis, VREF, Other Psych: No: Addictions, Anxiety, Bipolar, Depression, Panic, Psychosis, Schizophrenia, Other Musculoskeletal: Yes: Other (spine met radiated ; no further pain) Rheumatology: No: Fibromyalgia, Gout, Lupus, Rheumatoid Arthritis, Sarcoidosis, Vasculitis, Other Dermatology: Yes: Other (rash as above) - Alcohol/Substance Use Hx Alcohol Use: Yes (SOCIAL) - Smoking History Smoking history: Never smoked Home Medications - Allergies Allergies/Adverse Reactions: Allergies Allergy/AdvReac Type Severity Reaction Status Date / Time No Known Allergies Allergy Verified 06/17/17 14:21 - Home Medications Home Medications: Ambulatory Orders Acetaminophen W/ Codeine #3 [Tylenol # 3 -] 1 tab PO TID 06/17/17 Cephalexin [Keflex] 500 mg PO QID 06/17/17 FENTANYL 12mcg PATCH [DURAGESIC 12mcg PATCH -] 1 each TD Q72H 06/17/17 Letrozole 2.5 mg PO DAILY 06/17/17 Oxycodone HCl/Acetaminophen [Oxycodone-Acetaminophen 5-325] 2 tab PO Q6H Family Disease History - Family Disease History Family Disease History: CA: Mother (endometrial ca 76) Review of Systems - Review of Systems Constitutional: reports: Weakness (improving). denies: No Symptoms, Chills, Diaphoresis, Fever, Lethargy, Loss of Appetite, Malaise, Night Sweats, Unintentional Wgt. Loss, Other Eyes: reports: No Symptoms HENT: reports: No Symptoms Neck: reports: No Symptoms Cardiovascular: reports: No Symptoms Respiratory: reports: No Symptoms Gastrointestinal: reports: No Symptoms Genitourinary: reports: No Symptoms Breasts: reports: No Symptoms Reported Musculoskeletal: denies: No Symptoms, Back Pain, Crepitus, Decreased ROM, Extremity Pain, Joint Pain, Joint Swelling, Muscle Pain, Muscle Cramps, Muscle Weakness, Other Integumentary: reports: Erythema, Rash (below both breasts) Neurological: reports: No Symptoms Endocrine: reports: No Symptoms Hematology/Lymphatic: reports: No Symptoms Psychiatric: reports: No Symptoms Physical Exam Vital Signs: Vital Signs Temperature 98.6 F 06/19/17 18:23 Pulse Rate 118 H 06/19/17 18:23 Respiratory Rate 20 06/19/17 18:23 Blood Pressure 138/94 06/19/17 18:23 O2 Sat by Pulse Oximetry (%) 96 06/18/17 21:00 Constitutional: Yes: Well Nourished, No Distress, Calm, Obese Eyes: Yes: WNL, Conjunctiva Clear, EOM Intact HENT: Yes: WNL, Atraumatic, Normocephalic Neck: Yes: WNL, Supple, Trachea Midline Cardiovascular: Yes: WNL, Regular Rate and Rhythm Respiratory: Yes: WNL, Regular, CTA Bilaterally Gastrointestinal: Yes: WNL, Normal Bowel Sounds, Soft Musculoskeletal: Yes: WNL Extremities: Yes: WNL Edema: No Integumentary: Yes: Rash (erythematous even rash below L>R breasts) Neurological: Yes: WNL, Alert, Oriented ...Motor Strength: WNL Labs: CBC, BMP 06/19/17 06:00 06/19/17 06:00 Problem List - Problems (1) Candidiasis of breast Code(s): B37.89 - OTHER SITES OF CANDIDIASIS (2) Leukopenia due to antineoplastic chemotherapy Code(s): D70.1 - AGRANULOCYTOSIS SECONDARY TO CANCER CHEMOTHERAPY T45.1X5A - ADVERSE EFFECT OF ANTINEOPLASTIC AND IMMUNOSUP DRUGS, INIT (3) Metastatic breast cancer Code(s): C50.919 - MALIGNANT NEOPLASM OF UNSP SITE OF UNSPECIFIED FEMALE BREAST Assessment/Plan 56 y/o F w metastatic breast cancer s/p RT to spine w area of erythema in back confined to RT field , mild desquamation ; fungal- type rash under breasts , improving w ab's ; Neutopenia due to Kisqali improving , nearly up to 3 . No signif fevers and c/s neg . Pt can be d/c tomorrow if stable on oral ab's X several more days , perhaps till Monday ; WBC will likely continue to rise ; pt will come to office next Monday to see Dr Rosenberg; Likely she will re-start Kisqali at that time at 2 pills/day X 21 days ; she will continue Femara 2.5 mg qd .She is also to see Dr Talley , neurosurgery , soon about whether any spine stabilization needed in near future.Continue topical Rx of back rash.
[2017-06-20] MEDS: PIPERACILLIN/TAZOB 4.5 GM 4.5 GM in DEXTROSE 5%-WATER 100 ML IVPB SCH ×2 (01:51→10:21)
[2017-06-20] MEDS ORDERED: DEXTROSE 5%-WATER 100 ML IVPB ONE (10:16)
[2017-06-20] MEDS ORDERED: PIPERACILLIN/TAZOBACTAM 4.5 GM VIAL IVPB ONE (10:16)
[2017-06-20] MEDS ORDERED: PT OWN MED DRAWER 7, Y5N ONE (10:16)
[2017-06-20] MEDS: LETROZOLE 2.5 MG TABLET (FP) PO SCH (10:21)
[2017-06-20] MEDS: HEPARIN NA (PORCINE) 5,000 UNITS/ML 1ML VIAL SQ SCH (10:22)
[2017-06-20] MEDS: NYSTATIN/TRIAMCINOLONE TOPICAL CREAM 15 GM TUBE TP SCH (10:23)
[2017-06-20] MEDS: SILVER SULFADIAZINE 1% TOP CREAM 50 GM JAR TP SCH (10:23)
[2017-06-20] MEDS: VANCOMYCIN 1,250 MG in DEXTROSE 5%-WATER - 250 ML IVPB SCH (12:48)
--- NOTE | 2017-06-20 12:56 | PN ---
Progress Note (short form) - Note Progress Note: fevers resolved feels better Vital Signs Period Temp Pulse Resp BP Sys/Deras Pulse Ox Last 24 Hr 98.2 F-99.5 F 108-118 20-20 119-138/72-94 96 cor-rrr lungs clear back wound unchanged fungal rash much improved abd soft,nt ext no edema CBC, BMP 06/19/17 06:00 06/19/17 06:00 a/p fever/leukopenia open skin wound secondary to RT fungal rash under left breast-much improved metastatic breast cancer on chemotherapy s/p radiation therapy WBC recovering repeat cbc now suspect if wbc is stable she can go home and resume po keflex - had only taken one pill prior to admission continue antifungal cream for rash topical treatment for radiation skin wound vanco/zosyn lotrimin Problem List - Problems (1) Fever Code(s): R50.9 - FEVER, UNSPECIFIED (2) Leukopenia due to antineoplastic chemotherapy Code(s): D70.1 - AGRANULOCYTOSIS SECONDARY TO CANCER CHEMOTHERAPY T45.1X5A - ADVERSE EFFECT OF ANTINEOPLASTIC AND IMMUNOSUP DRUGS, INIT (3) Candidiasis of breast Code(s): B37.89 - OTHER SITES OF CANDIDIASIS (4) Metastatic breast cancer Code(s): C50.919 - MALIGNANT NEOPLASM OF UNSP SITE OF UNSPECIFIED FEMALE BREAST
[2017-06-20 13:52] LABS: BASOPHIL 0.7 % (0-2.0); MCH 31.8 pg (25.7-33.7); MCHC 33.2 g/dl (32.0-36.0); MEAN CELL VOLUME 95.8 fl (80-96); MEAN PLT VOLUME 8.2 fl (7.5-11.1); NEUTROPHILS 67.4 % (42.8-82.8); PLATELET COUNT 265 K/MM3 (134-434); RDW 20.4 % (11.6-15.6); WHITE BLOOD COUNT 2.2 K/mm3 (4.0-10.0)
[2017-06-20 15:43] VITALS: BP 142/78; PULSE 105; TEMP 98.1
--- NOTE | 2017-06-20 15:43 | DS ---
Physical Examination Vital Signs: Vital Signs Temperature 98.6 F 06/20/17 08:15 Pulse Rate 111 H 06/20/17 08:15 Respiratory Rate 24 06/20/17 08:15 Blood Pressure 126/71 06/20/17 08:15 O2 Sat by Pulse Oximetry (%) 96 06/19/17 21:00 Constitutional: Yes: No Distress Eyes: Yes: WNL HENT: Yes: WNL Neck: Yes: WNL Cardiovascular: Yes: WNL Respiratory: Yes: WNL Gastrointestinal: Yes: WNL Breast(s): Yes: Other Musculoskeletal: Yes: WNL Extremities: Yes: WNL Edema: No Peripheral Pulses WNL: Yes Integumentary: Yes: Rash Wound/Incision: Yes: Dressing Dry and Intact Neurological: Yes: WNL ...Motor Strength: WNL Psychiatric: Yes: WNL Labs: CBC, BMP 06/20/17 13:25 06/19/17 06:00 Discharge Summary Reason For Visit: SEPSIS Current Active Problems Candidiasis of breast (Acute) Fever (Acute) Hypokalemia (Acute) Leukopenia due to antineoplastic chemotherapy (Acute) Metastatic breast cancer (Acute) Sepsis (Acute) Procedures: Principal: LABS/CX Hospital Course: ADMITTED FOR RASH NEUTROPENIA/FEVERS IV ABX AND ANTIFUNGAL CREAMS. CULTURES NEGATIVE. Condition: Stable - Instructions Diet, Activity, Other Instructions: REG DIET FOLLOW WITH DR LEE ONCOLOGY Referrals: Lynette Barrera MD [Primary Care Provider] - Disposition: HOME - Home Medications Comprehensive Discharge Medication List: Ambulatory Orders Acetaminophen W/ Codeine #3 [Tylenol # 3 -] 1 tab PO TID 06/17/17 Cephalexin [Keflex] 500 mg PO QID 06/17/17 FENTANYL 12mcg PATCH [DURAGESIC 12mcg PATCH -] 1 each TD Q72H 06/17/17 Letrozole 2.5 mg PO DAILY 06/17/17 Oxycodone HCl/Acetaminophen [Oxycodone-Acetaminophen 5-325] 2 tab PO Q6H Acetaminophen [Tylenol .Regular Strength -] 650 mg PO Q6H PRN #0 tablet Fentanyl Patch Waste [Duragesic Patch Waste] 1 each MC PRN PRN #0 each 06/20/17 Letrozole [Femara -] 2.5 mg PO DAILY tablet 06/20/17 Nystatin/Triamcinolone Top Cr [Mycolog II -] 1 applic TP BID #120 applic Silver Sulfadiazine 1% Top Cr [Silvadene -] 1 applic TP DAILY #1 jar 06/20/17
== END 2017-06-20 16:42 | disposition home or self-care (01) | DRG 720 ==
LOC: JER 14:13 → JERBED 18:16 → J8W 20:26
PROVIDERS: ADMIT Family Medicine; ATTEND Family Medicine
DX: A41.9 Sepsis, unspecified organism (principal); D70.1 Agranulocytosis secondary to cancer chemotherapy; Y92.89 Other specified places as the place of occurrence of the external cause; T45.1X5A Adverse effect of antineoplastic and immunosuppressive drugs, initial encounter; E87.6 Hypokalemia; B37.89 Other sites of candidiasis; C50.919 Malignant neoplasm of unspecified site of unspecified female breast; C79.51 Secondary malignant neoplasm of bone; B48.8 Other specified mycoses; Z51.89 Encounter for other specified aftercare
CPT/HCPCS: 36415; 71010-TC; 80048; 80053; 81003; 81015; 82803; 83605; 84484; 85025; 85027; 85610; 87040; 87086; 93005; 93010; 99284-25; G0480; J1644

== ENCOUNTER 2018-03-29 07:32 | Day surgery (SDC) | payer OTHER ==
[2018-03-29 08:13] VITALS: BMI 35.6
[2018-03-29] MEDS ORDERED: PROPOFOL 20 ML ONE ×4 (09:00)
--- NOTE | 2018-03-29 09:02 | PROC ---
Endoscopy Procedure Endoscopy procedure completed. Please see scanned procedure report.
[2018-03-29 09:38] VITALS: TEMP 98
[2018-03-29 10:27] VITALS: BP 122/83; PULSE 64
--- NOTE | 2018-03-30 17:41 | PATH ---
Surgical Pathology Report Patient Name: ROMAN HYDE [facility]. Rec. #: [id number] /Age/Gender: 1960 (Age: 57) / F Account: [id number] Location: [facility]ENDOSCOPY Taken: 03/29/2018 Received: 03/29/2018 Reported: 03/30/2018 Physicians: Jay Michel M.D. Specimen(s) Received A: BX DUODENUM B: BX ANTRUM AND BODY Clinical History Epigastric pain, colon screening Postoperative diagnosis: Gastritis, poor prep Final Diagnosis A. DUODENUM, BIOPSY: DUODENAL MUCOSA WITH NO DIAGNOSTIC ABNORMALITIES. B. ANTRUM AND BODY, BIOPSY: GASTRIC MUCOSA WITH MILD CHRONIC INFLAMMATION. IMMUNOSTAIN IS NEGATIVE FOR H. PYLORI ORGANISMS. Electronically Signed Tania Vallejo M.D. Gross Description A. Received in formalin, labeled "biopsy duodenum second portion" are 2 stephens, irregular portions of soft tissue averaging 0.2 cm. in greatest dimension. The specimens are submitted in toto in one cassette. B. Received in formalin, labeled "biopsy antrum and body" are 2 stephens, irregular portions of soft tissue measuring 0.2 and 0.4 cm. in greatest dimension. The specimens are submitted in toto in one cassette. 03/29/2018 [place]03/29/2018
== END 2018-03-29 10:27 | disposition home or self-care (01) ==
LOC: JASU-ENDO 07:32
PROVIDERS: ATTEND Internal Medicine Gastroenterology
PROC: 0DB98ZX Excision of Duodenum, Via Natural or Artificial Opening Endoscopic, Diagnostic (ICD-10-PCS; 2018-03-29)
PROC: 0DB68ZX Excision of Stomach, Via Natural or Artificial Opening Endoscopic, Diagnostic (ICD-10-PCS; 2018-03-29)
PROC: 0DJD8ZZ Inspection of Lower Intestinal Tract, Via Natural or Artificial Opening Endoscopic (ICD-10-PCS; principal; 2018-03-29 09:00)
DX: Z12.11 Encounter for screening for malignant neoplasm of colon (principal); K29.70 Gastritis, unspecified, without bleeding; K44.9 Diaphragmatic hernia without obstruction or gangrene
CPT/HCPCS: 43239; G0104

== ENCOUNTER 2019-01-22 07:18 | Day surgery (SDC) | payer OTHER ==
[2019-01-21 12:26] VITALS: BMI 35.7
[2019-01-22] MEDS ORDERED: ceFAZolin SODIUM 1 GM VIAL ONE (08:47)
[2019-01-22] MEDS ORDERED: DEXAMETHASONE SOD PHOSPHATE 4 MG/1 ML VIAL ONE (08:47)
[2019-01-22] MEDS ORDERED: fentaNYL CITRATE 250 MCG/5 ML VIAL ONE (08:47)
[2019-01-22] MEDS ORDERED: MIDAZOLAM HCL 2 MG/2 ML SINGLE DOSE VIAL ONE (08:48)
[2019-01-22] MEDS ORDERED: SUCCINYLCHOLINE CHLORIDE 200 MG/10 ML VIAL ONE ×2 (08:48)
[2019-01-22] MEDS ORDERED: PROPOFOL 20 ML ONE (08:48)
[2019-01-22] MEDS ORDERED: ROCURONIUM BROMIDE 50 MG/5 ML VIAL ONE (08:48)
--- NOTE | 2019-01-22 09:04 | HP ---
History & Physical Update - History History: No Change - Physical Physical: No Change - Assessment Assessment: No Change - Plan Plan: No Change (H & P done on 01/07/19)
[2019-01-22] MEDS ORDERED: ceFAZolin SODIUM 1 GM VIAL IVPB ONE (09:12)
[2019-01-22] MEDS ORDERED: BUPIVACAINE HCL/PF 0.5% (5MG/ML) 10 ML VIAL IJ ONE ×2 (09:37)
[2019-01-22] MEDS ORDERED: LABETALOL HCL 5 MG/1 ML (100MG/20 ML VIAL) ONE (09:39)
--- NOTE | 2019-01-22 11:12 | OP ---
Operative Note - Note: Operative Date: 01/22/19 Pre-Operative Diagnosis: chronic cholecystitis with cholelithiasis Operation: Laparoscopic cholecystectomy Findings: intrahepatic GB packed with stones, fatty liver Post-Operative Diagnosis: Same as Pre-op Surgeon: Nirav Higgins Collector Of Internal Revenue: Allie Reeder Anesthesia: General, Peribulbar Specimens Removed: GB Estimated Blood Loss (mls): 15 Operative Report Dictated: Yes
--- NOTE | 2019-01-22 11:31 | OP ---
DATE OF OPERATION: 01/22/2019 PROCEDURE: Laparoscopic cholecystectomy. PREOPERATIVE DIAGNOSES: Chronic cholecystitis with cholelithiasis. POSTOPERATIVE DIAGNOSES: Chronic cholecystitis with cholelithiasis. SURGEON: Nirav Higgins MD MANAGEMENT ENGINEER: HAL Reeder ANESTHESIA: General endotracheal. FINDINGS AND PROCEDURE: This is a 58-year-old female who presented with right upper quadrant pain radiating to the back, aggravated by fatty meals. Preoperative ultrasound revealed a gallbladder packed with stones and normal-size common duct. So, patient was advised elective removal of the gallbladder, and consent was obtained after discussing the risks, benefits, and alternatives to the procedure. Patient was brought to the operating room and placed in supine position. General endotracheal anesthesia was administered. The abdomen was prepped and draped in the usual sterile fashion. Using 0.5% Marcaine, local anesthesia was administered to the proposed incision sites. The peritoneal cavity was entered using the Optiview technique via a 5-mm umbilical incision. Using a 5-mm 0-degree scope inserted in the 5-mm optical port, pneumoperitoneum was established. The peritoneal cavity was carefully inspected and was noted to be free of inadvertent injury. Patient was then placed in reverse Trendelenburg, [id number] position. An 11-mm subxiphoid port was inserted under direct vision. Two other 5-mm ports were inserted at the right subcostal margin at the midclavicular and anterior axillary lines. The liver was noted to be enlarged, and the gallbladder was noted to be intrahepatic in location. The fundus was then grasped and retracted anterosuperiorly. The infundibulum was identified and grasped and retracted anterolaterally. The visceral peritoneum covering the triangle of Calot was scored using the hook dissector connected to monopolar cautery. The scoring was carried towards the proximal liver bed where the gallbladder was partially from its liver attachment. The cystic duct and cystic artery were identified and skeletonized using the [place] dissector and with the hook dissector. A window was created behind the cystic artery in between the gallbladder bed and the liver to create the critical view of safety. The cystic duct and cystic artery were clipped at 3 points, followed by transection, leaving 2 clips at the cystic duct and cystic artery stumps. The gallbladder was resected on its bed in antegrade fashion using the hook dissector connected to monopolar cautery. Hemostasis was achieved along the way. After this was completed, the gallbladder bed was carefully inspected, and further hemostasis was done. Also, no abnormal fluid from the liver bed was noted. The Morison pouch and the right hepatic gutter were irrigated with sterile normal saline until return was clear. The gallbladder was placed in an Endobag and extracted via the subxiphoid incision where crushing of the stones packed in the gallbladder was done, and also, the subxiphoid incision was enlarged to accommodate this gallbladder packed with medium-size to large stones. After this was completed, the pneumoperitoneum was evacuated, and the ports were removed. The wounds were closed with continuous Vicryl 0 suture for the fascia of the subxiphoid incision and subcuticular Biosyn for suture for the skin. The wound closure was reinforced with Dermabond. The patient was successfully extubated and transferred to the postanesthesia care unit in satisfactory condition. Estimated blood loss was about 25 mL. Wound class: Clean/contaminated. The patient received 2 g of Ancef prior to the start of the procedure. Marlen [id number] MTDD
[2019-01-22] MEDS ORDERED: ONDANSETRON 4 MG/2 ML VIAL ONE (11:33)
--- NOTE | 2019-01-22 11:35 | SURG ---
Surgery Meat Cutting Block Repairer Note Meat Cutting Block Repairer: Allie Reeder PA-C (Suzy) Date of Service: 01/22/19 Diagnosis: chronic cholecystitis with cholelithiasis Procedure: Laparoscopic cholecystectomy I was present for the entirety of the operative procedure. For further detail, please refer to operative report. Visit type - Case Type Case Type: Scheduled - Emergency Emergency Visit: No - New patient This patient is new to me today: Yes Date on this admission: 01/22/19 - Critical Care Critical Care patient: No
[2019-01-22] MEDS ORDERED: ACETAMINOPHEN INJECTION 100 ML IVPB ONE (12:24)
[2019-01-22] MEDS ORDERED: ONDANSETRON 4 MG/2 ML VIAL IVPUSH PRN ×2 (12:25→15:53)
[2019-01-22] MEDS ORDERED: ACETAMINOPHEN 1000 MG/100 ML VIAL (NON FORMULARY) IVPB ONE (12:27)
[2019-01-22] MEDS ORDERED: LACTATED RINGERS SOLUTION 1,000 ML IV SCH ×2 (12:30→16:00)
[2019-01-22 14:13] VITALS: PULSE 67
[2019-01-22 14:59] VITALS: BP 119/79; TEMP 97.9
--- NOTE | 2019-01-24 11:42 | PATH ---
Surgical Pathology Report Patient Name: ROMAN HYDE [facility]. Rec. #: [id number] /Age/Gender: 1960 (Age: 58) / F Account: [id number] Location: [facility] SURGICAL Taken: 01/22/2019 Received: 01/22/2019 Reported: 01/24/2019 Physicians: Nirav Higgins M.D. Specimen(s) Received GALLBLADDER Clinical History Cholelithiasis Final Diagnosis GALLBLADDER, CHOLECYSTECTOMY: CHRONIC CHOLECYSTITIS AND CHOLELITHIASIS. Electronically Signed Loc Baker M.D. Gross Description Received in formalin, labeled "gallbladder," is a 9.0 x 3.0 x 2.4 cm. markedly torn and disrupted gallbladder with a 0.2 cm. in length portion of cystic duct attached. The outer surface is stephens-jensen with abundant defects and varies from smooth to shaggy. The lumen contains stephens-yellow, sludgelike bile as well as multiple brown, irregular to fragmented choleliths ranging from 0.1-1.1 cm in greatest dimension. The mucosa is stephens and focally eroded. The wall of the gallbladder measures 0.1 cm. in thickness. Network Developer sections are submitted in one cassette. 01/23/2019 [facility]01/23/2019
== END 2019-01-22 14:40 | disposition home or self-care (01) ==
LOC: JASU-SURG 07:18
PROVIDERS: ATTEND Surgery
PROC: 0FT44ZZ Resection of Gallbladder, Percutaneous Endoscopic Approach (ICD-10-PCS; principal; 2019-01-22 09:00)
DX: K80.10 Calculus of gallbladder with chronic cholecystitis without obstruction (principal)
CPT/HCPCS: 88304-TC; 94760; J0131